=== PATIENT | female | born 1965 | race African-American/Black ===

== ENCOUNTER 2017-12-02 18:57 | Emergency (ER) | payer MEDICAID, OTHER ==
[2017-12-02] MEDS: ONDANSETRON 4 MG INJ IV (21:15)
[2017-12-02] MEDS: LIDOCAINE/MYLANTA 40 ML BTL PO (21:20)
[2017-12-02] MEDS: morphine 4 MG/ML VIAL IV (21:20)
[2017-12-02] MEDS: SOD CHLORIDE 0.9% 1,000 ML IV (21:22)
[2017-12-02 21:33] LABS: ADD MAN DIFF? NO
[2017-12-02 21:35] LABS: WHITE BLOOD COUNT 7.5 10^3/ul (4.8-10.8)
[2017-12-02 21:35] LABS: BASOPHILS % 0.4 % (0.0-2.0); EOSINOPHILS # 0.1 10^3/ul (0.0-0.5); EOSINOPHILS % 1.2 % (0.0-7.0); HEMATOCRIT 42.9 % (37.0-47.0); HEMOGLOBIN 14.6 g/dl (12.0-16.0); LYMPHOCYTES # 1.8 10^3/ul (0.8-2.9); LYMPHOCYTES % 24.1 % (15.0-51.0); MEAN CORPUSCULAR HEMOGLOBIN 28.4 pg (29.0-33.0); MEAN CORPUSCULAR VOLUME 83.5 fl (82.0-101.0); MONOCYTE # 0.6 10^3/ul (0.3-0.9); MONOCYTES % 7.7 % (0.0-11.0); NEUTROPHILS % 66.2 % (39.0-77.0); PLATELET COUNT 274 10^3/UL (140-415); RED BLOOD COUNT 5.14 10^6/ul (4.20-5.40); RED CELL DISTRIBUTION WIDTH 15.3 % (11.5-14.5)
[2017-12-02 21:53] LABS: ALANINE AMINOTRANSFERASE 34 IU/L (13-69); ALBUMIN/GLOBULIN RATIO 1.14; ALKALINE PHOSPHATASE 93 IU/L (42-121); ANION GAP 16 (8-16); ASPARTATE AMINO TRANSFERASE 24 IU/L (15-46); BILIRUBIN,INDIRECT 0.5 mg/dl (0-1.1); BILIRUBIN,TOTAL 0.5 mg/dl (0.2-1.3); BLOOD UREA NITROGEN 13 mg/dl (7-20); CALCIUM 9.4 mg/dl (8.4-10.2); CARBON DIOXIDE 28 mmol/L (21-31); CHLORIDE 103 mmol/L (97-110); CREATININE 1.04 mg/dl (0.44-1.00); GLUCOSE 122 mg/dl (70-220); LIPASE 74 U/L (23-300); POTASSIUM 4.1 mmol/L (3.5-5.1); SODIUM 143 mmol/L (135-144); TOTAL PROTEIN 7.5 g/dl (6.1-8.1)
[2017-12-02 22:19] LABS: ADD UMIC NO; UR ASCORBIC ACID NEGATIVE (NEGATIVE); UR BILIRUBIN (Dip) NEGATIVE (NEGATIVE); UR BLOOD (Dip) NEGATIVE (NEGATIVE); UR CLARITY CLEAR (CLEAR); UR COLOR YELLOW (YELLOW); UR GLUCOSE (Dip) NEGATIVE (NEGATIVE); UR KETONES (Dip) NEGATIVE (NEGATIVE); UR LEUKOCYTE ESTERASE (Dip) NEGATIVE Leu/ul (NEGATIVE); UR NITRITE (Dip) NEGATIVE (NEGATIVE); UR SPECIFIC GRAVITY (Dip) 1.019 (1.003-1.030); UR TOTAL PROTEIN (Dip) NEGATIVE (NEGATIVE); UR UROBILINOGEN (Dip) NEGATIVE (NEGATIVE)
[2017-12-02] MEDS: KETOROLAC 30 MG INJ IV (23:19)
== END 2017-12-03 00:34 | disposition home or self-care (01) ==
LOC: E/R 12-03 00:34
DX: K80.70 Calculus of gallbladder and bile duct without cholecystitis without obstruction (principal); E66.01 Morbid (severe) obesity due to excess calories; F17.210 Nicotine dependence, cigarettes, uncomplicated; Z68.41 Body mass index [BMI] 40.0-44.9, adult
CPT/HCPCS: 36415; 76705; 80053; 81003; 83690; 85025; 96374; 96375; 99285-25

== ENCOUNTER 2018-07-28 20:14 | Emergency (ER) | payer MEDICAID ==
[2018-07-28] MEDS: predniSONE 20 MG TAB PO (21:02)
[2018-07-28] MEDS: DIPHENHYDRAMINE 25 MG CAP PO (21:02)
[2018-07-28] MEDS: CLOBETASOL 0.05% 15 GM OINT TOP (21:49)
== END 2018-07-28 21:55 | disposition home or self-care (01) ==
LOC: FTE 20:14
DX: L25.9 Unspecified contact dermatitis, unspecified cause (principal); F17.210 Nicotine dependence, cigarettes, uncomplicated
CPT/HCPCS: 99283; J7512

== ENCOUNTER 2018-09-09 14:19 | Emergency (ER) | payer MEDICAID ==
[2018-09-09] MEDS: predniSONE 20 MG TAB PO (15:43)
[2018-09-09] MEDS: FAMOTIDINE 20 MG TAB PO (15:43)
[2018-09-09] MEDS: DIPHENHYDRAMINE 50 MG INJ IM (15:43)
== END 2018-09-09 16:16 | disposition home or self-care (01) ==
LOC: FTE 14:19
DX: L29.9 Pruritus, unspecified (principal)
CPT/HCPCS: 96372; 99284-25